=== PATIENT | female | born 1935 | race Caucasian/White ===

== ENCOUNTER 2016-11-07 06:24 | Day surgery (SDC) | payer MEDICARE ==
--- NOTE | ~2016-11-07 | EGD ---
EGD REPORT [facility] [address] [place] [address] NAME: SAPNA IZAGUIRRE : 39 STATUS : REG [facility] PAT#: [id number] AGE: 81 ADM/REG DATE : 11/07/16 MR#: [id number] REPORT SERV DATE: 11/07/16 DICTATED BY: INES YU DATE: 11/07/16 REPORT STATUS : Draft TRANSCRIBED BY: [facility] DATE: 11/07/16 Endoscopy Center Patient Name: Sapna Izaguirre Date of : 1935 Attending MD: INES YU MD Procedure Date No Time: 11/07/2016 Procedure: Colonoscopy Indications: FH of Colon Cancer - 1st degree relative, Personal history of malignant neoplasm of the colon Referring MD: BLAKE LORENZO MD, ARASELI TELLO MD, PEARL MOCK III, MD Medicines: as per anesthesia Complications: No immediate complications. Procedure: Pre-Anesthesia Assessment: - ASA Grade Assessment: II - A patient with mild systemic disease. After I obtained informed consent, the scope was passed under direct vision. Throughout the procedure, the patient's blood pressure, pulse, and oxygen saturations were monitored continuously. The PCF [id number] was introduced through the anus and advanced to the ileocolonic anastomosis. The colonoscopy was performed without difficulty. The patient tolerated the procedure. The quality of the bowel preparation was adequate to identify polyps. Findings: The perianal and digital rectal examinations were normal. There was evidence of a prior end-to-side ileo-colonic anastomosis in the transverse colon. This was patent. This was characterized by healthy appearing mucosa. A sessile polyp was found in the descending colon. The polyp was 3 mm in size. The polyp was removed with a cold biopsy forceps. Resection and retrieval were complete. A sessile polyp was found in the sigmoid colon. The polyp was 3 mm in size. The polyp was removed with a cold biopsy forceps. Resection and retrieval were complete. Many small and large-mouthed diverticula were found in the sigmoid colon and in the descending colon. Internal hemorrhoids were found during endoscopy and were mild. Impression: - Patent end-to-side ileo-colonic anastomosis. - One 3 mm polyp in the descending colon. Resected and retrieved. - One 3 mm polyp in the sigmoid colon. Resected and EGD REPORT [address] [address] NAME: SAPNA IZAGUIRRE : 39 STATUS : REG [facility] PAT#: [id number] AGE: 81 ADM/REG DATE : 11/07/16 MR#: [id number] REPORT SERV DATE: 11/07/16 DICTATED BY: INES YU DATE: 11/07/16 REPORT STATUS : Draft TRANSCRIBED BY: [employer] DATE: 11/07/16 retrieved. - Diverticulosis in the sigmoid colon and in the descending colon. - Internal hemorrhoids. Recommendation: - Await pathology results. Procedure Code(s): --- Professional --- 30618, Colonoscopy, flexible, proximal to splenic flexure; with biopsy, single or multiple Diagnosis Code(s): --- Professional --- Z98.0, Intestinal bypass and anastomosis status D12.5, Benign neoplasm of sigmoid colon D12.4, Benign neoplasm of descending colon K64.8, Other hemorrhoids K57.30, Diverticulosis of large intestine without perforation or abscess without bleeding Z80.0, Family history of malignant neoplasm of digestive organs Z85.038, Personal history of other malignant neoplasm of large intestine CPT copyright 2013 [employer]. All rights reserved. The codes documented in this report are preliminary and upon hcc coders review may be revised to meet current compliance requirements. INES YU MD 11/07/2016 8:11 AM This report has been signed electronically. Number of Addenda: 0 Note Initiated On: 11/07/2016 7:27 AM Scope Withdrawal Time 0 hours 13 minutes 5 seconds [address] [place] [address]
[~2016-11-07 06:24] MED LIST: ACIPHEX PO; AMB5 PO; ARTIFICIAL TEARS OP; CO Q-10100 MG PO; FISH-EPA1000 MG PO; FOLBEE PO; FOLIC PO; GINGER ROOT PO; HARD NAILS PO; IRON325 MG PO; MAGNESIUM PO; MILK THISTLE PO; NEXIUM40 PO; PAPAYA ENZY1 OR; PERCOCET1 TA2 PO; POTASSIUM PO; PRILO PO; PRILOSEC40 MG PO; VITAMIN B-122500 MCG SL; ZETIA PO; ZOFRAN4 PO
== END 2016-11-07 23:59 | disposition home or self-care (01) ==
LOC: DMU 06:24
PROVIDERS: Internal Medicine Gastroenterology
PROC: 0DBN8ZZ Excision of Sigmoid Colon, Via Natural or Artificial Opening Endoscopic (ICD-10-PCS; 2016-11-07)
PROC: 0DBM8ZZ Excision of Descending Colon, Via Natural or Artificial Opening Endoscopic (ICD-10-PCS; principal; 2016-11-07 08:00)
DX: K63.5 Polyp of colon (principal); K64.8 Other hemorrhoids; K57.30 Diverticulosis of large intestine without perforation or abscess without bleeding; K74.60 Unspecified cirrhosis of liver; K76.0 Fatty (change of) liver, not elsewhere classified; K21.9 Gastro-esophageal reflux disease without esophagitis; D64.9 Anemia, unspecified; K44.9 Diaphragmatic hernia without obstruction or gangrene; Z98.890 Other specified postprocedural states; Z80.0 Family history of malignant neoplasm of digestive organs; Z90.89 Acquired absence of other organs; Z98.0 Intestinal bypass and anastomosis status; Z85.038 Personal history of other malignant neoplasm of large intestine; Z90.49 Acquired absence of other specified parts of digestive tract; Z98.41 Cataract extraction status, right eye; Z98.42 Cataract extraction status, left eye; R25.2 Cramp and spasm
CPT/HCPCS: 88305